=== PATIENT | female | born 1950 | race Caucasian/White ===

== ENCOUNTER → 2018-02-13 | Day surgery (SDC) | payer OTHER, BC ==
--- NOTE | 2018-02-13 11:19 | RAD REPORT ---
EXAM DESCRIPTION: Ultrasound-guided vacuum assisted left breast core biopsy CLINICAL HISTORY: Breast mass, 10-11 o'clock position R92.8 COMPARISON: Follow Up Breast Axilla Comp dated 01/29/2018; 3D DIAG ELEN LT UNI W/CAD dated 01/29/2018; BREAST/AXILLA, LIMITED dated 08/29/2017; 3D SCR ELEN BILAT W/CAD dated 08/14/2017 FINDINGS: Informed consent was obtained and time-out was performed. The patient's left breast was prepped and draped in the usual sterile fashion. 1% lidocaine was used for local anesthetic purposes. Utilizing aseptic technique and ultrasound guidance, vacuum assisted core biopsy device was used to o btain 2 core specimen through the mass of interest in the upper inner quadrant of the left breast bo roximately 10-11 o'clock. A post biopsy clip was then placed. All collected material was sent for cytology. Patient tolerated procedure well. IMPRESSION: Successful ultrasound guided vacuum assisted left breast 10-11 o'clock breast mass biops y.
--- NOTE | 2018-02-13 11:20 | RAD REPORT ---
EXAM DESCRIPTION: Ultrasound-guided vacuum assisted left breast core biopsy CLINICAL HISTORY: Breast mass, left breast 9 o'clock MASS COMPARISON: BREAST/AXILLA, LIMITED dated 08/29/2017; 3D DIAG ELEN LT UNI W/CAD dated 01/29/2018; 3D SCR ELEN BILAT W/CAD dated 08/14/2017; Follow Up Breast Axilla Comp dated 01/29/2018 FINDINGS: Informed consent was obtained and time-out was performed. The patient's left breast was prepped and draped in the usual sterile fashion. 1% lidocaine was used for local anesthetic purposes. Utilizing aseptic technique and ultrasound guidance, vacuum assisted core biopsy device was used to o btain 2 core specimens through the mass of interest, located 9 o'clock left breast periareolar region . A post biopsy clip was then placed. All collected material was sent for cytology. Patient tolerated procedure well. IMPRESSION: Successful ultrasound guided vacuum assisted left 9 o'clock breast mass biopsy.
== END ==
LOC: DS 09:38
PROVIDERS: ATTEND Student in an Organized Health Care Education/Training Program
PROC: 0HBU3ZX Excision of Left Breast, Percutaneous Approach, Diagnostic (ICD-10-PCS; principal; 2018-02-13)
DX: D05.12 Intraductal carcinoma in situ of left breast (principal)
CPT/HCPCS: 19083; 19084; 88305